=== PATIENT | female | born 1975 | race Caucasian/White ===

== ENCOUNTER → 2020-08-24 | Outpatient (CLI) | payer MEDICARE, OTHER ==
--- NOTE | 2020-08-24 09:55 | KCIC ---
DG BARIUM ENEMA Indication: Reason: INCOMPLETE COLONOSCOPY / Comparison: None. Technique: Double contrast barium enema was performed. Barium tip was passed into the rectum and cont rast was instilled under gravity. Air insufflated the colon intermittently. Multiple spot fluoroscopi c images were obtained in multiple obliquities. Post overhead images were obtained in multiple obliqu ities. Post evacuation images were also obtained. FINDINGS: A preliminary rubber press tender view of the abdomen and pelvis: Mild colonic stool burden most prominent proximal ly. Minimal small bowel gas. Contrast readily opacified the rectum and sigmoid colon. The patient was moved into multiple obliquit ies with contrast opacification of the descending and transverse colon. Mild contrast opacification o f the proximal colon due to stool filled colon. Nonopacification of the cecum. No mass or stricture i s identified. Multiple small polyps noted throughout the colon. Largest potential polyp within the de scending colon measures 8 mm on overhead image 7. Small polyps within the ascending colon largest demetria sures 3 mm. Fluoroscopic time: 6 minutes 15 seconds. Number of fluoroscopic images: 25 IMPRESSION: 1. Degraded evaluation of the proximal colon due to stool contents and redundant appearance. 2. Multiple small polyps throughout the colon largest within the descending colon, as described. Rec ommend follow-up and repeat colonoscopy as indicated. Electronically signed by: Amilcar Bloom DO (08/24/2020 9:52 AM) [id number]
== END ==
LOC: KCIC 07:53
PROVIDERS: ATTEND Internal Medicine Gastroenterology
DX: K63.5 Polyp of colon (principal)
CPT/HCPCS: 74270